=== PATIENT | female | born 1960 | race Two or more races ===

== ENCOUNTER 2024-10-11 10:57 | Emergency (ER) | payer MEDICARE, MEDICAID, SELFPAY ==
[2024-10-11 11:15] VITALS: BP 122/79; PULSE 62; RESP 16; TEMP 37.2; O2SAT 97; BMI 38.0
--- NOTE | 2024-10-11 11:26 | XR_ITS ---
Examination: PA chest single view Technique: Upright PA chest single view Exam date and time: October 11, 2024 1213 hrs. Indications: Chest pain dizziness today Findings: Normal heart size Lungs are clear The osseous structures are intact Impression: No active disease
--- NOTE | 2024-10-11 11:30 | EDNOTE_ITS ---
ED Dizzyness RME/HPI General Chief Complaint: Dizziness Stated Complaint: DIZZINESS Time Seen by Provider: 10/11/24 11:03 Arrival date/time: 10/11/24 10:57 RME / HPI RME / HPI Narrative: 64-year-old female patient with significant history of hypertension, CAD, status post stent placement, came in for evaluation regarding dizziness. Patient is having dizziness for the last 3 days, described as everything spinning, severity moderate. Patient also complaining of head that started this morning. Severity mild frontal in location. Also complained of left chest discomfort for the last 3 days. Severity mild. Denies any cough. Denies any slurring of speech denies any upper or lower extremity weakness. Denies any head trauma or fall. Denies any fever. No medication was taken prior to arrival. Related Data Home Medications ?Medication ?Instructions ?Recorded ?Confirmed clopidogrel 75 mg tablet (Plavix) 75 mg PO QDAY #0 tabs 05/08/14 09/13/18 aspirin 81 mg tablet,delayed 81 mg PO QDAY 09/13/18 09/13/18 release (Aspir-) atorvastatin 40 mg tablet (Lipitor) 80 mg PO QDAY 09/07/19 ergocalciferol (vitamin D2) 1,250 50,000 unit PO QWEEK 09/07/19 mcg (50,000 unit) capsule isosorbide mononitrate 30 mg 30 mg PO QAM 09/07/19 tablet,extended release 24 hr lisinopril 20 mg tablet 40 mg PO QDAY 09/07/19 metoprolol succinate 25 mg 50 mg PO BID #0 tabs 09/07/19 tablet,extended release 24 hr Previous Rx's ?Medication ?Instructions ?Recorded albuterol sulfate 90 mcg/actuation 2 puff inhalation Q4H #1 unit 09/07/19 aerosol inhaler (Ventolin HFA) dextromethorphan-guaifenesin 10 10 ml PO Q4H PRN cough #120 mL 09/07/19 mg-100 mg/5 mL oral liquid hydrocodone 5 mg-acetaminophen 325 1 tab PO BID PRN pain #10 tabs 11/13/21 mg tablet meclizine 25 mg tablet 25 mg PO BID PRN dizziness #14 tabs 10/11/24 Allergies Allergy/AdvReac Type Severity Reaction Status Date / Time Cephalexin Monohydrate Allergy Unknown rash,swelli Verified 10/11/24 10:57 ng loratadine Allergy Unknown Rash Verified 10/11/24 10:57 Penicillins Allergy Unknown Rash Verified 10/11/24 10:57 Review of Systems Review of Systems Narrative Review of Systems: Review of system reviewed and within normal limits except mentioned in HPI ED Exam Narrative Physical exam: VITAL SIGNS: Reviewed. GENERAL APPEARANCE: Alert and interactive, follows commands, no acute distress, HEAD AND FACE: Non-traumatic. ENT: PERRL, pink conjunctivitis, eyelid no trauma, Mucous membrane moist. NECK: Supple, nontender, no nuchal rigidity. CHEST: No tenderness, no crepitus, no paradoxical movement, no retractions. LUNGS: Clear, well ventilated, symmetric, no rales, no wheezing, no ronchi, no stridor, good breath sounds bilaterally. HEART: Regular rate, regular rhythm, no murmur, no gallops. ABDOMEN: Soft, positive bowel sounds, nondistended, no guarding, nontender, no rebound, no masses, RECTAL: Deferred. GENITAL: Deferred. NEUROLOGICAL: Gross motor function intact sensory function intact, Appropriate for age. MUSCULOSKELETAL: low back nontender, full range of motion. EXTREMITIES: Nontender, full range of motion. SKIN: Color pink, dry, no rash, no lacerations, no abrasions, no contusions. LYMPHATICS: Deferred. Course Quality Measures none Orders Category Date Time Status EKG (ED ONLY) *Do not use* NOW Care 10/11/24 11:[address] head/brain wo con Stat Exams 10/11/24 11:30 Completed EKG (ED Only) Stat Exams 10/11/24 11:30 Ordered XR chest 1V Stat Exams 10/11/24 11:26 Completed B-Type Natriuretic Peptide Stat Lab 10/11/24 11:47 Completed CBC Stat Lab 10/11/24 11:47 Completed Comprehensive Metabolic Panel Stat Lab 10/11/24 11:47 Completed Partial Thromboplastin Time Stat Lab 10/11/24 11:47 Completed Prothrombin Time with INR Stat Lab 10/11/24 11:47 Completed Troponin I Stat Lab 10/11/24 11:47 Completed Urinalysis, C/S if Indicated Stat Lab 10/11/24 12:15 Completed Meclizine HCl [Antivert] Med 10/11/24 11:26 Discontinued 50 mg PO X1 ONE Vital Signs Vital signs: Vital Signs Temperature 99 F 10/11/24 11:15 Pulse Rate 62 10/11/24 11:15 Respiratory Rate 16 10/11/24 11:15 Blood Pressure 122/79 10/11/24 11:15 Pulse Oximetry (%) 97 10/11/24 11:15 Oxygen Delivery Method Room Air 10/11/24 11:15 Dizziness MDM Narrative MDM Narrative:: 64-year-old female patient with significant history of hypertension, CAD, status post stent placement, came in for evaluation regarding dizziness. Patient is having dizziness for the last 3 days, described as everything spinning, severity moderate. Patient also complaining of head that started this morning. Severity mild frontal in location. Also complained of left chest discomfort for the last 3 days. Severity mild. Denies any cough. Denies any slurring of speech denies any upper or lower extremity weakness. Denies any head trauma or fall. Denies any fever. No medication was taken prior to arrival. Patient's workup today all came back unremarkable. Including CT scan of the head. Patient was given meclizine with significant improvement of symptoms. Patient is ambulatory unaided. Patient data External records reviewed:: None Clinical information provided by:: none Social determinants that could affect healthcare access:: none Patient has the following chronic illnesses:: Hypertension, CAD How is presenting disease/condition affected by chronic disease/condition?: exacerbated by Evaluation data The following diagnostics were reviewed and interpreted by me:: lab results, radiology exam(s) and EKG tracing(s) Lab and/or radiology exams considered but not ordered:: None Interpretation Summary: EKG as interpreted by me showed sinus rhythm, ventricular rate of 63 bpm, no ST segment elevation or depression noted. CT scan of the head came back unremarkable. I personally reviewed and interpreted the x-ray of this patient. There is no acute abnormalities found, no infiltrates no pneumothorax no hemothorax normal chest x-ray. Review of other structures was without significant abnormal findings also. I additionally reviewed the radiologist report and agree with the interpretation.. Laboratory workup also came back normal Medications / Prescriptions Medications or Prescriptions considered but not ordered:: None Medication administrations:: Medication Administration History Discontinued Medications Meclizine HCl (Meclizine Hcl 25 Mg Tablet) 50 mg PO X1 ONE Stop: 10/11/24 11:27 Last Admin: 10/11/24 12:12 Dose: 50 mg Documented By: MEHREEN Meclizine Consultations Consultation(s) initiated? (list below): No Diagnosis Dizziness Differential Diagnosis: cerebrovascular accident Most likely diagnosis given after review of the tests above:: Dizziness, vertigo Admission Indicated Admission indicated?: not indicated Admission Request Was there a request for admission?: No Disposition Plan Disposition Plan: Discharge Discharge Attestation Discharge Attestation: The patient and all family members were given an opportunity to ask questions and understood the discharge instructions. Discharge instructions specifically effects, indications for sooner follow up or return to the emergency department, and the expected course of current diagnosis. Patient condition: Stable Discharge Plan Plan Patient Disposition: HOME (Self Care) Disposition Comment: Stable Prescriptions/Referrals Prescriptions/Med Rec: New meclizine 25 mg tablet 25 mg PO BID PRN (Reason: dizziness) Qty: 14 0RF No Action isosorbide mononitrate 30 mg tablet extended release 24 hr 30 mg PO QAM ergocalciferol (vitamin D2) 50,000 unit capsule 50,000 unit PO QWEEK albuterol sulfate [Ventolin HFA] 90 mcg/actuation HFA aerosol inhaler 2 puff INH Q4H Qty: 1 0RF dextromethorphan-guaifenesin 10-100 mg/5 mL liquid 10 ml PO Q4H PRN (Reason: cough) Qty: 120 0RF clopidogrel [Plavix] 75 MG tablet 75 mg PO QDAY Qty: 0 metoprolol succinate 25 mg tablet extended release 24 hr 50 mg PO BID Qty: 0 aspirin [Aspir-81] 81 mg Tablet,Delayed Release (Dr/Ec) 81 mg PO QDAY lisinopril 20 mg tablet 40 mg PO QDAY atorvastatin [Lipitor] 40 mg tablet 80 mg PO QDAY hydrocodone-acetaminophen 5-325 mg tablet 1 tab PO BID MDD 10 PRN (Reason: pain) Qty: 10 0RF Referrals: Inez Miller PA-C [Primary Care Provider] - In 1 week Problem List Clinical Impression: Dizziness, Vertigo Patient/Caregiver Discharge Instructions Discharge Activity: activity as tolerated Education Materials: Vertigo Medicine Tx Additional Instructions: Thank you for the opportunity for serving you today. You are stable for discharged . You are advised to: Follow-up with your PCP in 1 to 2 days Return to ED for worsening of symptoms Increase oral fluids Take medication as prescribed Print Language: Icelandic Stand Alone Forms: Suzy Award Info., Patient Portal Info Letter PA/SEAL MIXING OPERATOR Supervising Physician PA/SEAL MIXING OPERATOR Supervising Physician: MD Isai
--- NOTE | 2024-10-11 11:30 | XR_ITS ---
Examination: CT brain head without contrast. 2-D sagittal coronal reconstructions Date and time of exam:October 11, 2024 11:36 AM Indications: Dizziness episodes beginning 3 days ago, history hypertension, increasing memory loss CTDI: vol (mGy):48.5 DLP: (mGycm):974 Technique: Multiple CT axial sections of the brain have been obtained, 5 mm slice thickness. Contrast has not been administered. 2-D sagittal, coronal reconstructions have been obtained Low dose protocols were performed. One or more of the following dose reduction techniques were used; automated exposure control, adjustment of the mA and/or KV according to patient size, use of iterative reconstruction technique. Findings: No significant ventricular enlargement. Intra-axial or extra-axial hemorrhage density is not seen. No mass effect or midline shift Basal cisterns are not remarkable. Fourth ventricle is midline. Cranial vault intact. Impression: Negative for acute hemorrhage, mass effect or midline shift Advise clinical correlation follow-up accordingly
[2024-10-11] MEDS: MECLIZINE HCL 25 MG TABLET 50 MG PO (12:12)
[2024-10-11 12:17] LABS: Basophils % (Auto) 0 % (0-2.5); Eosinophils # (Auto) 0.2 Thou/mm3 (0.0-0.5); Eosinophils % (Auto) 3 % (0-10); Hematocrit 41.9 % (36.0-46.0); Hemoglobin 13.4 g/dL (12.0-16.0); Immature Granulocytes % (Auto) 0 % (0-0); Immature Granulocytes Auto 0.01 Thou/mm3 (0.00-0.00); Lymphocytes # (Auto) 1.5 Thou/mm3 (1.0-4.8); Lymphocytes % (Auto) 24 % (10-50); Mean Corpuscular Hemoglobin 28.9 pg (25.0-35.0); Mean Corpuscular Volume 91 fL (80-100); Monocytes # (Auto) 0.3 Thou/mm3 (0.0-0.8); Monocytes % (Auto) 6 % (0-12); Neutrophils # (Auto) 4.1 Thou/mm3 (1.8-7.7); Neutrophils % (Auto) 67 % (37-80); Nucleated Red Blood Cell % 0 /100 WBC (0); Platelet Count 179 Thou/mm3 (140-440); RDW Standard Deviation 45.1 fL (36.4-46.3); Red Blood Count 4.63 Miln/mm3 (4.00-5.20); White Blood Count 6.1 Thou/mm3 (3.6-11.0)
[2024-10-11 12:34] LABS: B-Type Natriuretic Peptide 59 pg/mL (0-100)
[2024-10-11 12:35] LABS: Alanine Aminotransferase 29 U/L (10-49); Albumin, Serum 4.5 gm/dL (3.4-4.8); Albumin/Globulin Ratio 1.9 (1.2-2.2); Alkaline Phosphatase 64 U/L (46-116); Anion Gap 5 (7-16); Aspartate Amino Transferase 21 U/L (0-34); BUN/Creatinine Ratio 13 Ratio (12-20); Bilirubin,Total 0.7 mg/dL (0.3-1.2); Blood Urea Nitrogen 12 mg/dL (9-23); Calcium 10.2 mg/dL (8.3-10.6); Calcium (Corrected) 10.2 mg/dL (8.5-10.1); Carbon Dioxide 26.9 mMol/L (20.0-31.0); Chloride 108 mMol/L (98-107); Creatinine (Component) 0.9 mg/dL (0.6-1.3); Estimated Creatinine Clearance 66.7 mL/min (>60); Globulin 2.4 gm/dL (2.3-3.5); Glucose 104 mg/dL (74-106); Osmolality,Calculated 279 (275-295); Partial Thromboplastin Time 25.6 Seconds (22.0-36.0); Potassium 4.2 mMol/L (3.4-5.1); Prothrombin Time 11.4 Seconds (9.0-12.2); Sodium 140 mMol/L (136-145); Total Protein 6.9 gm/dL (5.7-8.2); Troponin I < 0.020 ng/mL (0.0-0.045); eGFR > 60 See Note
[2024-10-11 13:09] LABS: Collection Type, Urine Clean Catch
[2024-10-11 13:14] LABS: Bacteria,Urine Rare; Bilirubin,Urine Negative (Negative); Blood,Urine Negative (Negative); Clarity,Urine Clear (Clear/Hazy); Color,Urine Lt-Yellow (Lt Yel-Yel); Culture Indicated,Urine Not Indicated; Glucose, Urine Negative (Negative); Ketones,Urine Negative (Negative); Leukocyte Esterase,Urine Negative (Negative); Nitrite,Urine Negative (Negative); PH,Urine 6.5 (5.0-7.0); Protein,Urine Negative (Neg - Trace); RBC,Urine < 1 /hpf (0-3); Specific Gravity,Urine 1.013 (1.001-1.035); Squamous Epithelial Cell,Urine 1 /hpf (0-5); Urobilinogen,Urine Negative mg/dL (0.0-1.0); WBC,Urine 1 /hpf (0-5)
--- NOTE | 2024-10-11 14:17 | PC.NURSE ---
Patient came to the ED for dizziness since 10/08/24. Patient states when she gets up, beds down, and laying in bed the room starts spinning. Patient states it has been worse. Patient denies having dizzy spells in the past. POC updated patient verbalized understanding.
[2024-10-11 14:50] VITALS: BP 140/80; PULSE 62; RESP 18; TEMP 36.9; O2SAT 97
== END 2024-10-11 14:50 | disposition home or self-care (01) ==
PROVIDERS: Nurse Practitioner Family; Emergency Provider Emergency Medicine; PCP Physician Assistant
DX: R42 Dizziness and giddiness (principal); R07.89 Other chest pain; I10 Essential (primary) hypertension; I25.10 Atherosclerotic heart disease of native coronary artery without angina pectoris; Z95.5 Presence of coronary angioplasty implant and graft
CPT/HCPCS: 36415; 70450; 71045; 80053; 81001; 83880; 84484; 85025; 85610; 85730; 93005; 99284; A9270

== ENCOUNTER 2025-02-03 15:15 | Emergency (ER) | payer MEDICARE, MEDICAID, SELFPAY ==
[2025-02-03 15:16] VITALS: BMI 34.7
[2025-02-03 15:28] VITALS: BP 103/64; PULSE 78; RESP 18; TEMP 37.1; O2SAT 97
--- NOTE | 2025-02-03 15:34 | XR_ITS ---
Examination: PA lateral chest 2 views TECHNIQUE: Upright PA lateral chest 2 views Exam date and time: February 03, 2025 1545 hours INDICATIONS: Coughing chest pain beginning 3 weeks ago. FINDINGS: Mild hyperexpansion Normal heart size Minor scarring in the lingular segment No interval pneumonia or pulmonary edema. Intact osseous structures IMPRESSION: Mild hyperexpansion No interval pneumonia or pulmonary edema
--- NOTE | 2025-02-03 15:37 | PD.EDURI ---
Upper Respiratory Inf. RME/HPI General Chief Complaint: Flu Like Symptoms Stated Complaint: COUGH X 3 WKS, PCP GAVE MEDS, NO BETTER Time Seen by Provider: 02/03/25 15:27 Source: patient Arrival date/time: 02/03/25 15:15 64-year-old female with no known medical history presents to the emergency room with a chief complaint of a cough x 3 weeks Mode of arrival: ambulatory Limitations: no limitations Related Data Home Medications ?Medication ?Instructions ?Recorded ?Confirmed clopidogrel 75 mg tablet (Plavix) 75 mg PO QDAY #0 tabs 05/08/14 09/13/18 aspirin 81 mg tablet,delayed 81 mg PO QDAY 09/13/18 09/13/18 release (Aspir-) atorvastatin 40 mg tablet (Lipitor) 80 mg PO QDAY 09/07/19 ergocalciferol (vitamin D2) 1,250 50,000 unit PO QWEEK 09/07/19 mcg (50,000 unit) capsule isosorbide mononitrate 30 mg 30 mg PO QAM 09/07/19 tablet,extended release 24 hr lisinopril 20 mg tablet 40 mg PO QDAY 09/07/19 metoprolol succinate 25 mg 50 mg PO BID #0 tabs 09/07/19 tablet,extended release 24 hr Previous Rx's ?Medication ?Instructions ?Recorded albuterol sulfate 90 mcg/actuation 2 puff inhalation Q4H #1 unit 09/07/19 aerosol inhaler (Ventolin HFA) dextromethorphan-guaifenesin 10 10 ml PO Q4H PRN cough #120 mL 09/07/19 mg-100 mg/5 mL oral liquid hydrocodone 5 mg-acetaminophen 325 1 tab PO BID PRN pain #10 tabs 11/13/21 mg tablet meclizine 25 mg tablet 25 mg PO BID PRN dizziness #14 tabs 10/11/24 benzonatate 100 mg capsule 100 mg PO BID PRN cough #14 caps 02/03/25 Allergies Allergy/AdvReac Type Severity Reaction Status Date / Time Cephalexin Monohydrate Allergy Unknown rash,swelli Verified 02/03/25 15:19 ng loratadine Allergy Unknown Rash Verified 02/03/25 15:19 Penicillins Allergy Unknown Rash Verified 02/03/25 15:19 Review of Systems Review of Systems Systems Reviewed: All systems reviewed, normal except as documented Constitutional Constitutional: Reports system reviewed and no additional complaints, except as documented, Denies fatigue, Denies fever(s), Denies headache(s) and Denies weakness Eyes Eyes: Reports system reviewed and no additional complaints, except as documented, Denies blurry vision and Denies change in vision ENT Ears, Nose, Mouth, and Throat: Reports system reviewed and no additional complaints, except as documented, Denies otalgia, Denies headache(s), Denies nasal congestion, Denies throat swelling and Denies vertigo Cardiovascular Cardiovascular: Reports system reviewed and no additional complaints, except as documented, Denies chest pain, Reports dyspnea and Denies dyspnea on exertion Respiratory Respiratory: Reports system reviewed and no additional complaints, except as documented, Denies chest congestion, Reports cough, Reports dyspnea, Denies dyspnea on exertion and Denies wheezing Gastrointestinal Gastrointestinal: Reports system reviewed and no additional complaints, except as documented, Denies abdominal pain, Denies cramping, Denies nausea and Denies vomiting Genitourinary Genitourinary: Reports system reviewed and no additional complaints, except as documented Musculoskeletal Musculoskeletal: Reports system reviewed and no additional complaints, except as documented and Denies back pain Integumentary/Breasts Skin/Breast: Reports system reviewed and no additional complaints, except as documented and Denies wounds Neurologic Neurologic: Reports system reviewed and no additional complaints, except as documented, Denies confusion, Denies headache(s), Denies lack of coordination, Denies vertigo and Denies weakness Psychiatric Psychiatric: Reports system reviewed and no additional complaints, except as documented, Denies anxiety, Denies confusion, Denies depression, Denies paranoia, Denies suicidal ideation and Denies tactile hallucinations Endocrine Endocrine: Reports system reviewed and no additional complaints, except as documented and Denies fatigue Hematologic/Lymphatic Hematologic/Lymphatic: Reports system reviewed and no additional complaints, except as documented and Denies lymphadenopathy Allergic/Immunologic Allergic/Immunologic: Reports system reviewed and no additional complaints, except as documented, Denies throat swelling, Denies urticaria and Denies wheezing ED Exam General Limitations: Present no limitations General appearance: Present alert and in no apparent distress Head Head exam: Present atraumatic Eye Eye exam: Present normal appearance, PERRL and EOMI ENT ENT exam: Present normal exam, normal oropharynx and mucous membranes moist Neck Neck exam: Present normal inspection, full ROM and trachea midline Chest Chest inspection: Present normal inspection and symmetric chest wall rise Respiratory Respiratory exam: Present normal lung sounds bilaterally; Absent respiratory distress, wheezes, stridor, accessory muscle use or prolonged expiratory phase Cardiovascular Cardiovascular exam: Present regular rate, normal rhythm and normal heart sounds Abdominal Exam Abdominal exam: Present soft and normal bowel sounds Extremities Exam Extremities exam: Present normal inspection and full ROM Back Exam Back exam: Present normal inspection and full ROM Neurological Exam Neurological exam: Present alert, oriented X3 and CN II-XII intact Psychiatric Psychiatric exam: Present normal affect and normal mood Skin Skin exam: Present warm, dry, intact and normal color Course Quality Measures none Orders Category Date Time Status Bedside COVID-19 Antigen Test NOW Care 02/03/25 15:34 Active Bedside Influenza A&B Antigen Test NOW Care 02/03/25 15:34 Completed XR chest 2V Stat Exams 02/03/25 15:34 Completed Vital Signs Vital signs: Vital Signs Temperature 98.8 F 02/03/25 15:28 Pulse Rate 78 02/03/25 15:28 Respiratory Rate 18 02/03/25 15:28 Blood Pressure 103/64 02/03/25 15:28 Pulse Oximetry (%) 97 02/03/25 15:28 Oxygen Delivery Method Room Air 02/03/25 15:28 O2 saturation 97% within normal limits Upper Respiratory Infection MDM Narrative MDM Narrative:: 64-year-old female with no known medical history presents to the emergency room with a chief complaint of a cough x 3 weeks Patient is hemodynamically stable. He is afebrile not tachycardic not tachypneic and his O2 saturation is 97% on room air. Lung sounds are clear bilaterally there is no wheezing or any abnormal breath sounds. There is no accessory muscle use. The patient is afebrile. Chest x-ray was completed and was negative for any pneumonic infiltrates. COVID-19 and influenza were both negative Patient was discharged and educated to follow-up with primary care provider in the next 24 to 48 hours and return to the emergency room for any evidence of worsening signs or symptoms Patient data External records reviewed:: [facility] previous records Clinical information provided by:: patient Social determinants that could affect healthcare access:: none Patient has the following chronic illnesses:: No chronic illness How is presenting disease/condition affected by chronic disease/condition?: no chronic disease Evaluation data The following diagnostics were reviewed and interpreted by me:: lab results and radiology exam(s) Lab and/or radiology exams considered but not ordered:: Labs and radiology exams considered and ordered Interpretation Summary: Chest [id number]: Mild hyperexpansion Normal heart size Minor scarring in the lingular segment No interval pneumonia or pulmonary edema. Intact osseous structures IMPRESSION: Mild hyperexpansion No interval pneumonia or pulmonary edema Medications / Prescriptions Medications or Prescriptions considered but not ordered:: No medication given Medication administrations:: No medication given Consultations Consultation(s) initiated? (list below): No Diagnosis Upper Respiratory Differential Diagnosis: upper respiratory infection, sinusitis, viral infection, bronchitis, influenza and pharyngitis Most likely diagnosis given after review of the tests above:: Upper respiratory infection Admission Indicated Admission indicated?: not indicated Admission Request Was there a request for admission?: No Disposition Plan Disposition Plan: Discharge Discharge Attestation Discharge Attestation: The patient and all family members were given an opportunity to ask questions and understood the discharge instructions. Discharge instructions specifically effects, indications for sooner follow up or return to the emergency department, and the expected course of current diagnosis. Patient condition: Stable Discharge Plan Plan Patient Disposition: HOME (Self Care) Disposition Comment: Stable Prescriptions/Referrals Prescriptions/Med Rec: New benzonatate 100 mg capsule 100 mg PO BID PRN (Reason: cough) Qty: 14 0RF No Action isosorbide mononitrate 30 mg tablet extended release 24 hr 30 mg PO QAM ergocalciferol (vitamin D2) 50,000 unit capsule 50,000 unit PO QWEEK albuterol sulfate [Ventolin HFA] 90 mcg/actuation HFA aerosol inhaler 2 puff INH Q4H Qty: 1 0RF dextromethorphan-guaifenesin 10-100 mg/5 mL liquid 10 ml PO Q4H PRN (Reason: cough) Qty: 120 0RF clopidogrel [Plavix] 75 MG tablet 75 mg PO QDAY Qty: 0 metoprolol succinate 25 mg tablet extended release 24 hr 50 mg PO BID Qty: 0 aspirin [Aspir-81] 81 mg Tablet,Delayed Release (Dr/Ec) 81 mg PO QDAY lisinopril 20 mg tablet 40 mg PO QDAY atorvastatin [Lipitor] 40 mg tablet 80 mg PO QDAY hydrocodone-acetaminophen 5-325 mg tablet 1 tab PO BID MDD 10 PRN (Reason: pain) Qty: 10 0RF meclizine 25 mg tablet 25 mg PO BID PRN (Reason: dizziness) Qty: 14 0RF Referrals: No Primary/Family,Physician [Primary Care Provider] - In 1 week Problem List Clinical Impression: Upper respiratory infection Patient/Caregiver Discharge Instructions Education Materials: ED URI, Viral, No Abx (Adult) Additional Instructions: Please follow-up with your primary care provider in the next 24 to 48 hours. You tested negative for influenza, COVID-19. Your chest x-ray was negative for any pneumonic infiltrates. Your most probable diagnosis is a viral upper respiratory infection. The treatment for this is symptom management. Please continue to take Tylenol and ibuprofen for fever management. Please increase your oral fluid intake. For any evidence of worsening signs or symptoms please return to the emergency room immediately Print Language: New Zealander Stand Alone Forms: Suzy Award Info., Patient Portal Info Letter PA/JA Supervising Physician PA/JA Supervising Physician: Dr. Rene
== END 2025-02-03 17:40 | disposition home or self-care (01) ==
PROVIDERS: Emergency Provider Emergency Medicine
DX: J06.9 Acute upper respiratory infection, unspecified (principal)
CPT/HCPCS: 71046; 87400; 87811; 99283

== ENCOUNTER → 2025-09-17 | Outpatient (CLI) | payer MEDICARE, MEDICAID, SELFPAY ==
--- NOTE | 2025-09-17 16:45 | XR_ITS ---
Examination: MRI brain without intravenous contrast. Date and time of exam: September 17, 2025, 1637 hours INDICATIONS: Syncopal episodes with blurred vision beginning 2 months ago Technique: Multiple axial and sagittal images of the brain obtained. Siemens high-resolution 1.5 Lauren short bore scanners utilized. Sagittal sections, T1-weighted, TR 500, TE 14, are performed. Axial sections proton-density and T2-weighted have been obtained. Inversion recovery axial images, TR 9, 260, TE 111, TI 2500. Diffusion weighted images, axial sections, TR 4800, TE 128, B value 1000 Axial sections, ADC map, TR 4800, TE 128 Findings: Enlargement of the sella turcica is not present. The optic chiasm and infundibular are not remarkable. Prepontine and interpeduncular cisterns are not enlarged. There is no localized enlargement of the medulla or sangita. Fourth ventricle and cerebellar tonsils appear normal in position. No subacute area of hemorrhage density is seen. Mass in the cerebellopontine angle region is not evident. Globes symmetrical. Orbital musculature including medial lateral rectus muscles do not exhibit abnormality. Diffusion-weighted images demonstrate no focus of restricted diffusion. Increased white matter signal mild Mass effect upon the ventricular system is not identified. Impression: Negative for acute hemorrhage mass effect or midline shift No acute infarct
== END | disposition home or self-care (01) ==
PROVIDERS: PCP Physician Assistant; Referring Provider Physician Assistant; Visit Provider Physician Assistant
DX: R51.9 Headache, unspecified (principal); H53.9 Unspecified visual disturbance; H53.139 Sudden visual loss, unspecified eye
CPT/HCPCS: 70551